=== PATIENT | female | born 1990 | race Two or more races ===

== ENCOUNTER 2021-03-23 04:40 | Day surgery (SDC) | payer OTHER | END 2021-03-23 17:38 | disposition home or self-care (01) | LOC: CIR.AMB 04:40 | PROVIDERS: ATTEND Obstetrics & Gynecology | DX: N93.8 Other specified abnormal uterine and vaginal bleeding (principal); Z20.822 Contact with and (suspected) exposure to COVID-19 ==

== ENCOUNTER 2022-08-20 05:30 | Day surgery (SDC) | payer OTHER | END 2022-08-20 22:30 | disposition home or self-care (01) | LOC: CIR.AMB 05:30 | PROVIDERS: ATTEND Obstetrics & Gynecology | DX: N93.8 Other specified abnormal uterine and vaginal bleeding (principal); Z88.6 Allergy status to analgesic agent; Z20.822 Contact with and (suspected) exposure to COVID-19; E16.1 Other hypoglycemia ==

== ENCOUNTER → 2024-06-21 | Emergency (ER) | payer OTHER ==
[~2024-06-21] VITALS: Ht 167.6 cm; Wt 108.9 kg
[~2024-06-21] MED LIST: ESTROGENS, CONJUGATED 25 MG VIAL IV ONE; ESTROGENS, CONJUGATED 25 MG VIAL ONE
[2024-06-21 17:57] LABS: HEMATOCRIT 38.6 % (36.0-45.00); HEMOGLOBIN 13.1 g/dL (12.0-15.00); MEAN CELL VOLUME 86.4 fL (80.00-100.00); MEAN CORPUSCULAR HEMOGLOBIN 29.2 pg (27.00-32.0); MEAN CORPUSCULAR HGB CONC 33.8 g/dl (32.0-36.0); PLATELET COUNT 330 K/uL (150-450); RED BLOOD COUNT 4.47 M/uL (4.00-6.00)
== END | disposition home or self-care (01) ==
LOC: ER 16:58
PROVIDERS: Emergency Medicine
DX: N93.8 Other specified abnormal uterine and vaginal bleeding (principal); Z88.8 Allergy status to other drugs, medicaments and biological substances